=== PATIENT | male | born 1970 | race Caucasian/White ===

== ENCOUNTER 2016-04-22 10:40 | Emergency (ER) | payer OTHER ==
[~2016-04-22] VITALS: Ht 170.2 cm; Wt 60.9 kg
[~2016-04-22 10:40] MED LIST: IND10 PO
[2016-04-22 10:45] VITALS: BP 167/107; PULSE 75; RESP 16; O2SAT 98
--- NOTE | 2016-04-22 10:45 | ED.REPORT ---
HPI-Chest Pain 40 and Over Date of Service Apr 22, 2016 ED Provider: Dr. Andrea A 45 year old male with a history of HTN on metoprolol and current smoker presents to the ED via EMS complaining of chest pain onset earlier this morning which lasted 5-10 minutes. The patient was being seen by his PCP today to address 2 weeks of intermittent chest pressure with radiation to his R arm and neck. He denies any recent fever or illness. Per EMS he had 324 mg of ASA earlier and was experiencing SOB and dizziness with the pressure. He denies any history of MO, but his mother had a MO in her 60's. His brother has hypercholesterolemia. 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 His PCP is at [facility]. Nursing Notes Stated Complaint: CHEST PAIN Nursing Notes Reviewed: Yes Allergies: Coded Allergies: bupropion HCl (Verified Allergy, 03/08/13) Scheduled Propranolol-Expunged Drug, Do Not Renew! (Propranolol-Expunged Drug, Do Not Renew!) 10 Mg Tab 10 MG PO TID General Time Seen by MD: 10:44 Transferred From: halfway Chief Complaint Chest pain Hx Obtained From: Patient, EMS Arrived By: Ambulance Sudden in Onset?: Yes Onset Occurred: 1 - 4 hours ago Symptom Duration: Intermittent Severity: Current: No pain currently Severity: Maximum: No pain Recent Healthcare: No recent hospitalization Similar Sx Previous: No Risk Factors HEART Score HEART for MACE: Low index of susp (0), Normal ECG (0), Age 45 - 65 (1), 1-2 CAD risk factors (1), < or = to NL troponin (0) HEART for MACE Score: 0-3 (low risk 0.9%-1.7%) Past Medical History Past Medical History Reports: Hypertension Past Surgical History None reported Smoking History Smoker Current Status UNK Social History Alcohol Use: "Social" Ambulatory Status Independent Review of Systems Constitutional: Denies: Fever Respiratory: Reports: Shortness of breath Cardiovascular: Reports: Chest pain GI: Denies: Diarrhea, Nausea, Vomiting Neurologic: Reports: Dizziness Complete sys rev & neg: except as marked. Physical Exam Initial Vital Signs Vital Signs (First) Date Time Temp Pulse Resp B/P Pulse Ox O2 Delivery O2 Flow Rate FiO2 04/22/16 10:45 37.1 75 16 167/107 98 Room Air Initial VS: Reviewed General/Constitutional: Awake, Alert Respiratory / Chest: Breath sounds NL, Breath sounds = bilat, No respiratory distress, No rales, No rhonchi, No wheezing Cardiovascular: Heart rate NL, Regular rhythm, Heart sounds NL, No gallop, No murmurs, No rubs Abdomen: Atraumatic, Soft, Non-tender, No guarding, No rebound Neck: Atraumatic, Full range of motion Lower Extremity / Pelvis / MS: Atraumatic, Full range of motion Skin: Atraumatic, Color NL, Warm, Dry Neurologic: Oriented X3, Speech NL, No motor deficits, No sensory deficits Psychiatric: Affect NL, Mood NL Head / Eyes: Atraumatic, Normocephalic, PERRL, EOMI ENT: Atraumatic, Airway patent, Mucous membranes moist Upper Extremity / MS: Atraumatic, Full range of motion Interpretation & Diagnostics Lab Results Interpretation Result Diagram: 04/22/16 1050 04/22/16 1050 Test 04/22/16 10:50 04/22/16 12:37 White Blood Count 5.4th/mm3 (3.8-10.1) Red Blood Count 4.78mil/mm3 (4.40-5.80) Hemoglobin 16.1g/dL (13.8-17.2) Hematocrit 44.9% (41.0-50.0) Mean Corpuscular Volume 93.9fL (81-100) Mean Corpuscular Hemoglobin 33.7pg (27.0-35.0) Mean Corpuscular Hemoglobin Concent 35.9% (32.0-37.0) Red Cell Distribution Width 12.2% (12.3-15.4) Platelet Count 191bil/L (150-400) Neutrophils (%) (Auto) 49.9% (40-74) Lymphocytes (%) (Auto) 34.3% (14-46) Monocytes (%) (Auto) 12.5% (4-12) Eosinophils (%) (Auto) 2.2% (0-5) Basophils (%) (Auto) 0.7% (0-3) Sodium Level 141mEq/L (134-144) Potassium Level 4.1mEq/L (3.5-5.2) Chloride Level 104mEq/L (97-108) Carbon Dioxide Level 24mmol/L (18-29) Blood Urea Nitrogen 8mg/dL (6-24) Creatinine 0.65mg/dL (0.76-1.27) Estimat Glomerular Filtration Rate 141mL/min (>59) Glucose Level 98mg/dL (60-99) Calcium Level 8.4mg/dL (8.5-10.1) Magnesium Level 2.0mg/dL (1.6-2.6) Total Bilirubin 0.3mg/dL (0.0-1.2) Aspartate Amino Transf (AST/SGOT) 18U/L (0-50) Alanine Aminotransferase (ALT/SGPT) 15U/L (0-44) Alkaline Phosphatase 96U/L (25-150) Total Protein 6.4g/dL (6.4-8.4) Albumin 4.0g/dL (3.4-5.0) Troponin T 0.010ug/L (0.0-0.011) ECG Interpretation ECG Interpretation: Normal sinus rhythm. Rate is 66. Poor R wave progression. No acute ST or T changes. Time: 10:58 Interpreted by: ED physician X-Ray Chest Interpretation Chest Xray Interpretation: IMPRESSION: Normal chest Dictated by: Cheko Lozada M.D. on 04/22/2016 at 11:41 Approved by: Cheko Lozada M.D. on 04/22/2016 at 11:42 View: Portable, 1 view Interpretation / Wet Read by: Interpret - Radiologist Re-Eval/Medical Decision Source of Hx: Old records, EMS Time of Eval: 13:28 Re-Evaluation/Progress Note: Rechecked patient, explained test results. All questions addressed. Counseled Regarding: Diagnosis, Lab results, Need for follow-up, When/why to return to ED Discharge & Departure Primary Impression: Chest pain Chest pain type: unspecified Qualified Code: R07.9 - Chest pain, unspecified Disposition: Home Discharge Condition All VS Reviewed: Yes Condition: Stable Patient Instructions: Chest Pain (ED) Additional Instructions: No evidence of acute heart attack at this time. Your chest pain certainly needs further evaluation. I recommended aspirin daily and your regular blood pressure medications until instructed otherwise by your primary care doctor. Follow-up with primary care in the coming days for further evaluation as indicated. Follow-up right away for pain that is not resolved promptly within 10 or 15 minutes. Referrals: Javier Heath MD (PCP) Scribe Attestation Portions of this note were transcribed by Brian Solis and Doris Martinez. I, , personally performed the history, physical exam, and medical decision-making: I reviewed and confirmed the accuracy for the information in the transcribed note. Signed by: Brian Solis and Doris Martinez, efren, 04/22/16 1123. copies to: Javier Heath MD, Kirk H MD Apr 22, 2016 10:45 Brian Solis Apr 22, 2016 10:50 Doris Martinez Apr 22, 2016 12:35
[2016-04-22 10:58] LABS: BASOPHILS % (AUTO) 0.7 % (0-3); EOSINOPHILS % (AUTO) 2.2 % (0-5); MONOCYTES % (AUTO) 12.5 % (4-12); Mean Corpuscular Hemoglobin 33.7 pg (27.0-35.0); Mean Corpuscular Volume 93.9 fL (81-100); NEUTROPHILS % (AUTO) 49.9 % (40-74); Platelet Count 191 bil/L (150-400)
[2016-04-22 11:18] LABS: TROPONIN T 0.01 ug/L (0.0-0.011)
--- NOTE | 2016-04-22 11:43 | DRSVH ---
PROCEDURE: X-RAY CHEST ONE VIEW, PORTABLE ([id number]) INDICATIONS: CHEST PAIN TECHNIQUE: One view of the chest was acquired. COMPARISON: None. FINDINGS: Surgical changes and devices: None. Lungs and pleura: No pleural effusions or pneumothorax. Lungs are clear. Mediastinum: Mediastinal contours appear normal. Heart size is normal. Bones and chest wall: No suspicious bony lesions. Overlying soft tissues appear unremarkable. IMPRESSION: Normal chest Dictated by: Cheko Lozada M.D. on 04/22/2016 at 11:41 Approved by: Cheko Lozada M.D. on 04/22/2016 at 11:42
[2016-04-22 13:35] VITALS: BP 157/91; PULSE 83; RESP 20; O2SAT 96
== END 2016-04-22 13:47 | disposition home or self-care (01) ==
LOC: EDUNIT# 10:40 → EDBD 10:40 → SED 10:40
DX: R07.89 Other chest pain (principal); R06.02 Shortness of breath; R42 Dizziness and giddiness; I10 Essential (primary) hypertension; F17.200 Nicotine dependence, unspecified, uncomplicated; Z88.8 Allergy status to other drugs, medicaments and biological substances

== ENCOUNTER 2016-07-07 03:32 | Emergency (ER) | payer OTHER ==
[~2016-07-07] VITALS: Ht 170.2 cm; Wt 60.9 kg
[2016-07-07 03:38] VITALS: BP 144/92; PULSE 98; RESP 16; O2SAT 98
--- NOTE | 2016-07-07 03:49 | ED.REPORT ---
HPI-Rash / Abscess Date of Service July 07, 2016 ED Provider: Trung Glaser Patient is a 45 year old male with a hx of HTN who presents to the ED complaining of worsening L sided facial swelling onset 2 days ago. Associated symptoms include redness at the site and fever. He denies nausea, vomiting, or any other symptoms. Patient has a hx of dental problems. Nursing Notes Stated Complaint: L SIDED FACIAL SWELLING Chief Complaint: Skin Rash/Abscess Nursing Notes Reviewed: Yes Allergies: Coded Allergies: bupropion HCl (Verified Allergy, Unknown, 07/07/16) Scheduled Clindamycin (Clindamycin) 300 Mg Capsule 600 MG PO TID Propranolol-Expunged Drug, Do Not Renew! (Propranolol-Expunged Drug, Do Not Renew!) 10 Mg Tab 10 MG PO TID Scheduled PRN Ibuprofen (Ibuprofen) 600 Mg Tablet 600 MG PO QID PRN PRN For Pain General Time Seen by MD: 03:48 Chief Complaint Tender/swollen area Hx Obtained From: Patient, Spouse Arrived By: Walk-in Onset Occurred: 2 days ago Symptom Duration: Since onset Past Medical History Past Medical History Reports: Hypertension Past Surgical History None reported Smoking History Current Every Day Smoker Social History Alcohol Use: 1-3 per day Other Social History: Good social support Ambulatory Status Independent Review of Systems Constitutional: Reports: Fever GI: Denies: Nausea, Vomiting Skin: Reports Swelling (With redness ) Complete sys rev & neg: except as marked. Physical Exam Initial Vital Signs Vital Signs (First) Date Time Temp Pulse Resp B/P Pulse Ox O2 Delivery O2 Flow Rate FiO2 07/07/16 03:38 38.6 98 16 144/92 98 Room Air Head / Eyes: Normocephalic Neck: Full range of motion Respiratory: No respiratory distress Abdomen / GI: Soft, Non-tender Neurologic: Alert, Oriented, Nonfocal Psychiatric: Mood/affect normal, Behavior normal, Normal thought content General/Constitutional: Awake, Alert, Well developed Skin: Warm Abscess Notes: firmness and induration at nasolabial fold with surrounding erythema on L side ENT: Airway patent Dental / Gums: Positive: Dentition poor Procedures Incision & Drainage Abscess Time: 04:18 Procedure Performed by: ED physician Consent / Setup / Site Prep: Informed consent provided, Consent from patient , Time-out performed, Hand hygiene observed, Stand sterile technique, Sterile drapes applied Location of Abscess: nasolabial fold, L Local Anesthesia: Lidocaine 1% Pus Drained: Small Post-Procedure / Complications: Dressing applied, No complications, Condition improved, Tolerated procedure well, Patient stable Re-Eval/Medical Decision Med Decision/Clinical Course Small firm pimple on the left nasolabial fold with surrounding erythema and induration. In size for a small amount of pus. Teeth underlying are in terrible condition, and dental abscess may be the primary cause of the facial swelling. Begun with clindamycin. Discharge now in stable condition for follow-up with PCP and with dentist. Hot soaks bacitracin and 600 3 times a day clindamycin Re-Evaluation/Progress : Time of Eval: 04:37 Patient Status: Condition improved Re-Evaluation/Progress Note: Discussed plan for discharge. Patient understands and agrees with plan. All questions addressed at this time. Counseled Regarding: Diagnosis, Need for follow-up, When/why to return to ED Discharge & Departure Shift Change Sign-Out Response to Therapy: Improved Impression: Primary Impression: Abscess Additional Impression: Dental caries into pulp Disposition: Home Discharge Condition All VS Reviewed: Yes Condition: Improved Additional Instructions: You appear to have a small skin abscess, and addition to multiple carious teeth. Begin hot soaks to the area on her face for times daily, and then apply bacitracin to the small wound, and cover with a Band-Aid. Begin clindamycin two capsules three times daily. Follow-up with your dentist, and with your regular family doctor. Return if any immediate issues. Referrals: Greer Gibbs (PCP) Scribe Attestation Portions of this note were transcribed by Julián Almaguer. I, Dr. Glaser personally performed the history, physical exam and medical decision-making; I reviewed and confirmed the accuracy of the information in the transcribed note. Signed by: Julián Almaguer 07/07/16, [id number] copies to: Greer Gibbs Christopher W MD July 07, 2016 03:49 JULIÁN ALMAGUER July 07, 2016 03:55
[2016-07-07] MEDS ORDERED: CLIN-78 PO (04:34)
[2016-07-07] MEDS ORDERED: IBUP-1827 PO (04:34)
[2016-07-07 04:43] VITALS: PULSE 96; RESP 20; O2SAT 98
== END 2016-07-07 04:45 | disposition home or self-care (01) ==
LOC: SED 03:32
DX: J34.0 Abscess, furuncle and carbuncle of nose (principal); K02.9 Dental caries, unspecified; I10 Essential (primary) hypertension; F17.200 Nicotine dependence, unspecified, uncomplicated; Z88.8 Allergy status to other drugs, medicaments and biological substances

== ENCOUNTER 2016-08-21 13:06 | Emergency (ER) | payer OTHER ==
[~2016-08-21] VITALS: Ht 170.2 cm; Wt 61.4 kg
[~2016-08-21 13:06] MED LIST changes: +CLIN-78 PO; +IBUP-1827 PO
[2016-08-21 13:20] VITALS: BP 161/108; PULSE 87; RESP 15; O2SAT 98
[2016-08-21] MEDS ORDERED: PARO20TA5 PO (13:25)
[2016-08-21] MEDS ORDERED: ASPI81TA3 PO (13:25)
[2016-08-21] MEDS ORDERED: METO-272 PO (13:25)
[2016-08-21] MEDS ORDERED: LISI10TA PO (13:25)
--- NOTE | 2016-08-21 15:23 | ED.REPORT ---
HPI-General Illness Date of Service Aug 21, 2016 ED Provider: Ethan Scherer MD Pt is a 45 y/o male w/ a hx of HTN, dental abscess, presenting to the ED c/o left-sided dental pain secondary to probable dental infection onset yesterday. He c/o associated left-sided swelling around the upper part of his mouth. No involvement up towards the eyes. The patient has an appointment with a dentist next week. He does have a history of similar symptoms caused by a dental abscess. Pt denies vision changes, pain with extraocular movement, dysphagia, nausea, vomiting, fever, chills. He is a current smoker. Nursing Notes Stated Complaint: PUFFY FACE Chief Complaint: Dental Nursing Notes Reviewed: Yes Allergies: Coded Allergies: bupropion HCl (Verified Allergy, Unknown, 08/21/16) Scheduled Amoxicillin/Clav K 875-125 mg (Augmentin 875-125 mg) 1 Each Tablet 1 TABLET PO BID Aspirin Chew (Aspirin Chew) 81 Mg Chew 81 MG PO DAILY Clindamycin (Clindamycin) 300 Mg Capsule 600 MG PO TID Lisinopril (Lisinopril) 10 Mg Tablet 10 MG PO DAILY Metoprolol Succinate ER (Metoprolol Succinate ER) 50 Mg Tab.er.24h 50 MG PO DAILY Paroxetine (Paroxetine) 20 Mg Tablet 20 MG PO DAILY Propranolol-Expunged Drug, Do Not Renew! (Propranolol-Expunged Drug, Do Not Renew!) 10 Mg Tab 10 MG PO TID Scheduled PRN Ibuprofen (Ibuprofen) 600 Mg Tablet 600 MG PO QID PRN PRN For Pain General Time Seen by MD: 15:21 Chief Complaint Other (facial swelling) Hx Obtained From: Patient Arrived By: Walk-in Sudden in Onset?: No Onset Occurred: Yesterday Symptom Duration: Since onset Location: : Mouth Quality: Painful Severity: Current: Moderate Severity: Maximum: Moderate Recent Healthcare: Previous diagnosis Similar Sx Previous: Yes Past Medical History Past Medical History Dental abscess Reports: Hypertension Past Surgical History Rotator cuff 2010 Smoking History Current Every Day Smoker Social History Alcohol Use: 1-3 per day Drug Use: Denies drug use Other Social History: Good social support Ambulatory Status Independent Review of Systems +facial swelling Full Review of Systems Constitutional: Denies: Chills, Fever Ears / Nose / Throat: Reports: Toothache Respiratory: Denies: Non-productive cough, Shortness of breath Cardiovascular: Denies: Chest pain, Dyspnea on exertion GI: Denies: Abdominal pain, Dysphagia, Nausea, Vomiting Complete sys rev & neg: except as marked. Physical Exam Constitutional: Well-developed, well-nourished. Not diaphoretic. Head: Normocephalic and atraumatic. L upper mouth w/ some swelling without erythema. Mouth/Throat: Oropharynx is clear and moist. No oropharyngeal exudate. Small periapical abscess left upper canine. Normal bite. No trismus. No tongue swelling, no issues swallowing. Eyes: EOM are normal. Pupils are equal, round, and reactive to light. Neck: Supple, no tracheal deviation. No LAD. Cardiovascular: Normal rate, regular rhythm. Equal and intact distal pulses throughout. Pulmonary/Chest: Effort normal and breath sounds normal. No respiratory distress. Abdominal: Soft. No distension. Musculoskeletal: Range of motion grossly intact, moving all extremities. Neurological: AOx3. Grossly nonfocal exam. Strength and sensation intact and equal to bilateral upper and lower extremities. Skin: Warm and dry, no rashes or pallor appreciated. Psychiatric: Appropriate mood and affect. Behavior appears normal. Vital Signs Vital Signs Date Time Temp Pulse Resp B/P Pulse Ox O2 Delivery O2 Flow Rate FiO2 08/21/16 13:20 37.1 87 15 161/108 98 Room Air Initial VS: Reviewed, Vital signs abnormal Procedures Incision & Drainage Abscess Time: 18:00 Procedure Performed by: ED physician Consent / Setup / Site Prep: Consent from patient, Hand hygiene observed, Stand sterile technique Location of Abscess: Periapical above 11 and 12 Local Anesthesia: Lidocaine w epi 1% Incised Abscess with Scalpel: #11 Pus Drained: Purulent discharge Post-Procedure / Complications: No complications, Condition improved, Tolerated procedure well, Patient stable Re-Eval/Medical Decision Med Decision/Clinical Course 45-year-old male presenting to the ED for evaluation of left-sided upper dental pain with swelling. He appears to have a periapical abscess around #11 and 12. No appreciable facial involvement otherwise, extraocular movements intact without pain, afebrile, nontoxic appearing. No systemic symptoms. No trismus. Bedside I&D performed as per above - tolerated well. Only small incision created with significant drainage of pus; I do not feel that packing would be obtainable here in the ED, and the patient needs follow-up tomorrow regardless. Plan discharge with antibiotics, very careful return precautions, and dental follow-up tomorrow. I stressed the importance of follow-up to the patient. Patient verbalized agreement and understanding, no further questions. Time of Eval: 18:09 Re-Evaluation/Progress Note: Pt rechecked. He does not want a CT at this point. Informed pt of plan for treatment. Pt understands and agrees with plan for treatment. F/U instructions and RTER warnings given. All questions addressed. Counseled Regarding: Diagnosis, Need for follow-up, When/why to return to ED Discharge & Departure Primary Impression: Dental abscess Disposition: Home Discharge Condition All VS Reviewed: Yes Condition: Stable Patient Instructions: Dental Abscess (ED) Additional Instructions: You have a dental abscess that was incised and drained today but will still need definitive treatment with a dentist. Take the full course of antibiotics as prescribed. Continue taking Ibuprofen 600 mg every 6 hours as needed for pain. Make an appointment to be seen by your dentist sooner than your scheduled appointment. Tell them that the infection is spreading into your face and that you need to be seen sooner. Return to the emergency department for severe pain, worsening swelling, neck or throat swelling, trouble swallowing, fever or shaking chills, vomiting, profound weakness or lightheadedness, vision changes, or for other concerning symptoms. Referrals: Greer Gibbs (PCP) Benjamin Attestation Portions of this note were transcribed by Josiah Richards. I, Dr. Scherer, personally performed the history, physical exam and medical decision-making; I reviewed and confirmed the accuracy of the information in the transcribed note. Signed by Benjamin Mg, 08/21/16 - [id number] copies to: Greer Gibbs William B MD Aug 21, 2016 15:23 JOSIAH RICHARDS Aug 21, 2016 15:25
[2016-08-21] MEDS ORDERED: AMOX-366 PO (18:24)
[2016-08-21 18:29] VITALS: BP 152/92; PULSE 59; RESP 15; O2SAT 100
== END 2016-08-21 18:21 | disposition home or self-care (01) ==
LOC: SED 13:06
DX: K04.7 Periapical abscess without sinus (principal); I10 Essential (primary) hypertension; F17.200 Nicotine dependence, unspecified, uncomplicated; Z88.8 Allergy status to other drugs, medicaments and biological substances; Z79.82 Long term (current) use of aspirin

== ENCOUNTER 2016-09-29 21:14 | Emergency (ER) | payer OTHER ==
[~2016-09-29] VITALS: Ht 170.2 cm; Wt 61.4 kg
[~2016-09-29 21:14] MED LIST changes: +AMOX-366 PO; +ASPI81TA3 PO; +LISI10TA PO; +METO-272 PO; +PARO20TA5 PO
[2016-09-29 21:31] VITALS: BP 125/86; PULSE 79; RESP 16; O2SAT 97
--- NOTE | 2016-09-29 22:01 | DRSVH ---
PROCEDURE: X-RAY CHEST ONE VIEW, PORTABLE ([id number]) INDICATIONS: SOB TECHNIQUE: One view of the chest was acquired. COMPARISON: [facility], CR, XR CHEST 1VW (PORTABLE), 04/22/2016, 11:00. FINDINGS: Surgical changes and devices: None. Lungs and pleura: No pleural effusions or pneumothorax. Lungs are clear. Mediastinum: Mediastinal contours appear normal. Heart size is normal. Bones and chest wall: No suspicious bony lesions. Overlying soft tissues appear unremarkable. IMPRESSION: No acute or active disease is seen in the one view chest x-ray. Cause of shortness of amador ath is not identified. Dictated by: Tres Rodriguez M.D. on 09/29/2016 at 21:58 Approved by: Tres Rodriguez M.D. on 09/29/2016 at 21:59
--- NOTE | 2016-09-29 22:25 | ED.REPORT ---
HPI-Chest Pain 40 and Over Date of Service Sep 29, 2016 ED Provider: Joaquin Thomas MD Pt is a 45 year old male with a history of HTN who presents to the ED complaining of SOB onset 19:30 today while eating dinner. He c/o chest pain, dyspnea, and cough with clear phlegm, which he reports exacerbates his pain. He denies fever and chills. Pt reports that he had a recent lower left rib fracture on 09/07/16 after a ground level fall. He rates the pain as a 6/10, stating that it is a 9/10 at its worst. Nursing Notes Stated Complaint: HARD TIME BREATHING Chief Complaint: Respiratory Complaints Nursing Notes Reviewed: Yes Allergies: Coded Allergies: bupropion HCl (Verified Allergy, Unknown, 09/29/16) Scheduled Amoxicillin/Clav K 875-125 mg (Augmentin 875-125 mg) 1 Each Tablet 1 TABLET PO BID Aspirin Chew (Aspirin Chew) 81 Mg Chew 81 MG PO DAILY Clindamycin (Clindamycin) 300 Mg Capsule 600 MG PO TID Lisinopril (Lisinopril) 10 Mg Tablet 10 MG PO DAILY Metoprolol Succinate ER (Metoprolol Succinate ER) 50 Mg Tab.er.24h 50 MG PO DAILY Paroxetine (Paroxetine) 20 Mg Tablet 20 MG PO DAILY Propranolol-Expunged Drug, Do Not Renew! (Propranolol-Expunged Drug, Do Not Renew!) 10 Mg Tab 10 MG PO TID Scheduled PRN Ibuprofen (Ibuprofen) 600 Mg Tablet 600 MG PO QID PRN PRN For Pain General Time Seen by MD: 23:35 Chief Complaint Shortness of breath Hx Obtained From: Patient Arrived By: Walk-in Sudden in Onset?: No Onset Occurred: 5 - 8 hours ago Symptom Duration: Since onset Quality: Painful Radiation: : Does not radiate Severity: Current: Moderate Severity: Maximum: Moderate Recent Healthcare: Recent doctor visit Similar Sx Previous: No Past Medical History Past Medical History Dental abscess Left right fracture - 09/07/16 Reports: Hypertension Past Surgical History Rotator cuff 2010 Smoking History Current Every Day Smoker Social History Alcohol Use: 1-3 per day Drug Use: Denies drug use Other Social History: Good social support Ambulatory Status Independent Review of Systems Constitutional: Denies: Chills, Fever Respiratory: Reports: Dyspnea on exertion, Prod cough, clear, Shortness of breath Cardiovascular: Reports: Chest pain Complete sys rev & neg: except as marked. Physical Exam Initial Vital Signs Vital Signs (First) Date Time Temp Pulse Resp B/P Pulse Ox O2 Delivery O2 Flow Rate FiO2 09/29/16 21:31 37.0 79 16 125/86 97 Room Air Initial VS: Reviewed, Vital signs normal Neck: Supple, Full range of motion Extremities: Vascular intact, Neuro intact Skin: Warm, Dry, No cyanosis Neurologic: Alert, Oriented, Nonfocal Psychiatric: Mood/affect normal, Behavior normal General/Constitutional: Awake, Alert Alertness: Positive: Sleeping but arousable, Somnolent Respiratory / Chest: Breath sounds NL, Breath sounds = bilat, No rales, No rhonchi, No wheezing Tenderness with palpation to left rib 7-8 and visble dimpling of skin over rib fracture. No cough on exam. Cardiovascular: Heart rate NL, Regular rhythm, Heart sounds NL, No gallop, No murmurs Abdomen: Atraumatic, Soft, Non-tender Interpretation & Diagnostics Lab Results Interpretation Result Diagram: 09/29/16222409/29/162224 Test 09/29/16 22:25 White Blood Count 7.4th/mm3 (3.8-10.1) Red Blood Count 4.21mil/mm3 (4.40-5.80) Hemoglobin 14.0g/dL (13.8-17.2) Hematocrit 40.1% (41.0-50.0) Mean Corpuscular Volume 95fL (81-100) Mean Corpuscular Hemoglobin 33.3pg (27.0-35.0) Mean Corpuscular Hemoglobin Concent 34.9% (32.0-37.0) Red Cell Distribution Width 12.5% (12.3-15.4) Platelet Count 257bil/L (150-400) Neutrophils (%) (Auto) 63.6% (40-74) Lymphocytes (%) (Auto) 21.4% (14-46) Monocytes (%) (Auto) 12.1% (4-12) Eosinophils (%) (Auto) 2.2% (0-5) Basophils (%) (Auto) 0.4% (0-3) Band Neutrophils % % (1-5) Sodium Level 140mEq/L (134-144) Potassium Level 4.2mEq/L (3.5-5.2) Chloride Level 102mEq/L (97-108) Carbon Dioxide Level 23mmol/L (18-29) Blood Urea Nitrogen 12mg/dL (6-24) Creatinine 0.82mg/dL (0.76-1.27) Estimat Glomerular Filtration Rate 108mL/min (>59) Glucose Level 109mg/dL (60-99) Calcium Level 8.7mg/dL (8.5-10.1) Total Bilirubin 0.2mg/dL (0.0-1.2) Aspartate Amino Transf (AST/SGOT) 18U/L (0-50) Alanine Aminotransferase (ALT/SGPT) 13U/L (0-44) Alkaline Phosphatase 121U/L (25-150) Troponin T 0.010ug/L (0.0-0.011) Pro-B-Type Natriuretic Peptide 68.41pg/mL (0-121) Total Protein 6.0g/dL (6.4-8.4) Albumin 3.7g/dL (3.4-5.0) ECG Interpretation ECG Interpretation: Sinus rhythjm with a rate of 70 Probable left atrial enlargement Anteroseptal infarct, age indeterminate Time: 21:59 Interpreted by: ED physician X-Ray Chest Interpretation Chest Xray Interpretation: IMPRESSION: No acute or active disease is seen in the one view chest x-ray. Cause of shortness of breath is not identified. Dictated by: Tres Rodriguez M.D. on 09/29/2016 at 21:58 View: Portable, 1 view Interpretation / Wet Read by: Interpret - Radiologist Re-Eval/Medical Decision Med Decision/Clinical Course 45-year-old male with a recently fractured rib. He is having persistent intermittent pain since then. Chest x-ray today shows no new abnormalities. He is being discharged home to continue his previous regimen. No change in treatment at this time. Source of Hx: Old records Time of Eval: 00:20 Re-Evaluation/Progress Note: Pt rechecked. Informed pt of plan for discharge. Pt understands and agrees with plan for discharge. F/U instructions and RTER warnings given. All questions addressed. Counseled Regarding: Diagnosis, Lab results, Need for follow-up, When/why to return to ED Discharge & Departure Primary Impression: Chest pain Chest pain type: chest pain on breathing Qualified Code: R07.1 - Chest pain on breathing Additional Impression: Rib fracture Encounter type: subsequent encounter Rib fracture type: single rib Fracture type: closed Laterality: left Fracture healing: with routine healing Qualified Code: S22.32XD - Fracture of one rib, left side, subsequent encounter for fracture with routine healing Disposition: Home Discharge Condition All VS Reviewed: Yes Condition: Stable Patient Instructions: Rib Fracture (ED) Additional Instructions: No evidence on the chest x-ray of pneumonia, displaced fracture, or lung collapse. Continue your ibuprofen for pain. Recheck with your primary doctor as needed. Referrals: Greer Gibbs (PCP) Scribe Attestation Portions of this note were transcribed by Yandy Mccoy. I, Dr. Thomas personally performed the history, physical exam and medical decision-making; I reviewed and confirmed the accuracy of the information in the transcribed note. Signed by: Benjamin Feng, 09/29/16. copies to: Greer Gibbs Howard L MD Sep 29, 2016 22:25 Yandy Madden Sep 29, 2016 23:21
[2016-09-29 22:57] LABS: Mean Corpuscular Hemoglobin 33.3 pg (27.0-35.0); Mean Corpuscular Volume 95 fL (81-100); Platelet Count 257 bil/L (150-400); TROPONIN T 0.01 ug/L (0.0-0.011)
[2016-09-29 22:58] LABS: BASOPHILS % (AUTO) 0.4 % (0-3); EOSINOPHILS % (AUTO) 2.2 % (0-5); MONOCYTES % (AUTO) 12.1 % (4-12); NEUTROPHILS % (AUTO) 63.6 % (40-74)
[2016-09-30 00:24] VITALS: BP 122/70; PULSE 66; RESP 16; O2SAT 100
== END 2016-09-30 01:06 | disposition home or self-care (01) ==
LOC: SED 21:14
DX: S22.32XA Fracture of one rib, left side, initial encounter for closed fracture (principal); W18.39XA Other fall on same level, initial encounter; Y93.89 Activity, other specified; Y92.89 Other specified places as the place of occurrence of the external cause; Y99.8 Other external cause status; I10 Essential (primary) hypertension; F17.200 Nicotine dependence, unspecified, uncomplicated; Z79.82 Long term (current) use of aspirin; Z88.8 Allergy status to other drugs, medicaments and biological substances